=== PATIENT | male | born 1995 | race African-American/Black ===

== ENCOUNTER 2016-04-11 17:06 | Emergency (ER) | payer OTHER ==
[2016-04-11 18:54] VITALS: BP 120/49
--- NOTE | 2016-04-11 19:54 | UC ---
Elbow Pain - HPI Summary HPI Summary: tender, hot, reddened area left elbow. Not painful to use arm, not consistent with tendinitis. Doesn't recall an injury or an insect bite. REdness and tenderness have worsened over the past day. NO fever or vomiting. - History of Current Complaint Chief Complaint: [place] Stated Complaint: LEFT ELBOW INFECTION Time Seen by Provider: 04/11/16 19:42 Hx Obtained From: Patient Onset/Duration: Days - 3 Severity Initially: Mild Severity Currently: Mild Location Of Pain: Is Discrete @ - left inner elbow Character: Burning Aggravating Factor(s): Nothing Alleviating Factor(s): Nothing Associated Signs And Symptoms: Positive: Redness - Allergies/Home Medications Allergies/Adverse Reactions: Allergies Allergy/AdvReac Type Severity Reaction Status Date / Time No Known Allergies Allergy Verified 04/11/16 18:54 PMH/Surg Hx/FS Hx/Imm Hx Previously Healthy: Yes - Surgical History Surgical History: Yes Surgery Procedure, Year, and Place: left ankle-2010. Root canal 2017 - Family History Known Family History: Positive: None - Social History Occupation: Student Lives: With Family Alcohol Use: Weekly Substance Use Type: Marijuana Substance Use Comment - Amount & Last Used: Monthly Smoking Status (MU): Never Smoked Tobacco Review of Systems Constitutional: Negative Skin: Other - redness, burning left elbow Eyes: Negative ENT: Negative Respiratory: Negative Cardiovascular: Negative Gastrointestinal: Negative Genitourinary: Negative Motor: Negative Neurovascular: Negative Musculoskeletal: Negative Neurological: Negative Psychological: Negative All Other Systems Reviewed And Are Negative: Yes Physical Exam Triage Information Reviewed: Yes Appearance: Well-Appearing, No Pain Distress, Well-Nourished Vital Signs: Initial Vital Signs Temp 98.8 F 04/11/16 18:48 Pulse 60 04/11/16 18:48 Resp 16 04/11/16 18:48 BP 120/49 04/11/16 18:48 Pulse Ox 100 04/11/16 18:48 Vital Signs Reviewed: Yes Eye Exam: Normal Neck exam: Normal Respiratory Exam: Normal Musculoskeletal Exam: Normal Neurological Exam: Normal Psychological Exam: Normal Skin Exam: Other - slightly raised, reddened area on inner left elbow. Mildly tender. Increased warmth. No visible break in skin. No pain over epicondyles. Full ROM without discomfort Elbow Pain Course/Dx - Differential Dx/Diagnosis Differential Diagnosis/HQI/PQRI: Cellulitis Provider Diagnoses: cellulitis Discharge - Discharge Plan Condition: Stable Disposition: HOME Prescriptions: Hydrocortisone 1% CREAM* [Hytone Cream 1%*] 1 applic TOPICAL BID #1 tube Sulfamethox/Trimethoprim DS* [Bactrim DS 800/160 TAB*] 1 tab PO BID #20 tab Patient Education Materials: Cellulitis (ED) Referrals: Non Staff,Doctor [Primary Care Provider] -
== END 2016-04-11 20:12 | disposition home or self-care (01) ==
LOC: UCCORT 17:06
DX: L03.114 Cellulitis of left upper limb (principal); F12.90 Cannabis use, unspecified, uncomplicated
CPT/HCPCS: 99212; G0463